=== PATIENT | male | born 1955 | race Caucasian/White ===

== ENCOUNTER 2021-08-02 11:29 | Day surgery (SDC) | payer BC ==
[~2021-08-02] VITALS: Ht 188 cm; Wt 123.5 kg
[~2021-08-02 11:29] MED LIST: NO HOME MEDS
[2021-08-02] MEDS ORDERED: normal saline 1000ml 1,000 ML IV SCH (11:50)
[2021-08-02] MEDS ORDERED: MIDAZolam 1mg/ml 10ml vial IV ONE (11:50)
[2021-08-02] MEDS ORDERED: amiodarone 150mg/dext, iso-os 100 ML IV ONE (11:50)
[2021-08-02] MEDS ORDERED: fentaNYL/PF 50MCG/1 ML 2ML syringe IV ONE (11:50)
[2021-08-02] MEDS ORDERED: APIX5TAB3 PO (11:54)
[2021-08-02] MEDS ORDERED: SOTA80TA73 PO (11:54)
[2021-08-02 12:28] VITALS: BP 124/93
[2021-08-02 14:45] VITALS: BP 138/95
[2021-08-02 15:00] VITALS: BP 139/104
[2021-08-02 15:02] VITALS: BP 142/109
[2021-08-02 15:03] VITALS: BP 126/85
[2021-08-02 15:15] VITALS: BP 124/86
== END 2021-08-02 15:55 | disposition home or self-care (01) ==
LOC: SSTAY O 11:29
PROVIDERS: ATTEND Internal Medicine Interventional Cardiology
DX: I48.3 Typical atrial flutter (principal); I42.9 Cardiomyopathy, unspecified; I10 Essential (primary) hypertension; Z79.01 Long term (current) use of anticoagulants; Z79.899 Other long term (current) drug therapy
CPT/HCPCS: 92960; 93005; 94799; J2250; J3010; J7030

== ENCOUNTER 2023-03-20 13:30 | Emergency (ER) | payer MEDICARE, BC ==
[~2023-03-20] VITALS: Ht 188 cm; Wt 120.5 kg
[~2023-03-20 13:30] MED LIST changes: +APIX5TAB3 PO; -NO HOME MEDS; +SOTA80TA73 PO
[2023-03-20 13:33] VITALS: TEMP 98.6
[2023-03-20 14:15] LABS: BASOPHILS % (AUTO) 0.3 % (0-1); EOSINOPHILS # (AUTO) 0.2 X10'3 (0-0.9); EOSINOPHILS % (AUTO) 1.9 % (0-6); HEMATOCRIT 40.8 % (42.0-52.0); HEMOGLOBIN 13.3 g/dl (14.0-17.9); LYMPHOCYTES # (AUTO) 1.7 X10'3 (1.1-4.8); LYMPHOCYTES % (AUTO) 18.9 % (21-51); MEAN CORPUSCULAR HEMOGLOBIN 27.8 PG (27.0-31.0); MEAN CORPUSCULAR HGB CONC 32.5 g/dL (33.0-36.5); MEAN CORPUSCULAR VOLUME 85.6 FL (78-98); MEAN PLATELET VOLUME 8.4 FL (7.4-10.4); MONOCYTES # (AUTO) 1.1 X10'3 (0-0.9); MONOCYTES % (AUTO) 12.4 % (2-12); NEUTROPHILS # (AUTO) 5.9 X10'3 (1.8-7.7); NEUTROPHILS % (AUTO) 66.5 % (42-75); PLATELET COUNT 215 X10'3 (140-440); RED BLOOD COUNT 4.76 X10'6 (4.70-6.10); RED CELL DISTRIBUTION WIDTH 14.9 % (11.5-14.5); WHITE BLOOD COUNT 8.9 X10'3 (4.5-11.0)
[2023-03-20 14:24] LABS: ALANINE AMINOTRANSFERASE 38 U/L (12-78); ALBUMIN 3.6 G/DL (3.4-5.0); ALKALINE PHOSPHATASE 56 IU/L (46-116); ANION GAP 5 (8-16); ASPARTATE AMINO TRANSFERASE 26 U/L (10-37); BILIRUBIN,TOTAL 0.4 MG/DL (0.1-1.0); BLOOD UREA NITROGEN 21 MG/DL (7-18); BUN/CREATININE RATIO 18.1 (10.0-20.0); CALCIUM 8.7 MG/DL (8.5-10.1); CHLORIDE 106 MMOL/L (99-107); CREATININE 1.16 MG/DL (0.60-1.10); GLUCOSE 99 MG/DL (70-104); SODIUM 138 MMOL/L (135-145); TOTAL CARBON DIOXIDE 26.9 MMOL/L (24-32); TOTAL PROTEIN 7.3 G/DL (6.4-8.2); eCRCL 74 ML/MIN; eGFR 63 ML/MIN
[2023-03-20 14:33] LABS: PRO BRAIN NATRIURETIC PEPTIDE 64 PG/ML (0-125)
[2023-03-20 16:14] LABS: D-DIMER 1.13 MG/L FEU (0-0.50)
[2023-03-20] MEDS ORDERED: iohexol 350MG/ML 100ml bottle IV ONE (16:22)
[2023-03-20 17:57] VITALS: BP 169/74; PULSE 81; RESP 14; O2SAT 100
== END 2023-03-20 17:58 | disposition home or self-care (01) ==
LOC: ER 13:31
DX: R07.89 Other chest pain (principal); Z79.899 Other long term (current) drug therapy
CPT/HCPCS: 36415; 71045; 71275; 80053; 83880; 84484; 85025; 85379; 93005; 99285; J3490; Q9967